=== PATIENT | female | born 1965 | race Caucasian/White ===

== ENCOUNTER 2017-06-21 11:11 | Day surgery (SDC) | payer OTHER ==
[2017-06-21] MEDS ORDERED: MIDAZOLAM 1 MG/ML 2 ML INJ ×4 (15:57→15:58)
[2017-06-21] MEDS ORDERED: FENTAnyl 50 MCG/ML VIAL (15:58)
== END 2017-06-21 18:42 | disposition home or self-care (01) ==
LOC: GIL 11:11
DX: K92.1 Melena (principal); D12.6 Benign neoplasm of colon, unspecified; K57.90 Diverticulosis of intestine, part unspecified, without perforation or abscess without bleeding; K64.9 Unspecified hemorrhoids
CPT/HCPCS: 45380; 88305